=== PATIENT | male | born 1995 | race Caucasian/White ===

== ENCOUNTER 2021-01-19 12:09 | Emergency (ER) | payer BC ==
[2021-01-19 13:25] LABS: Urine Blood 3+ (Negative); Urine Glucose Negative (Negative); Urine Protein 1+ (Negative); Urine Specific Gravity >=1.030 (1.005-1.030); Urine pH 5.5 (5.0-7.0)
[2021-01-19 14:57] LABS: Absolute Lymphocytes (CBC) 2.2 K/uL (0.7-4.9); Basophils % 0.6 % (0-1.3); Hematocrit 41.3 % (39.6-49.0); Lymphocytes % 30.3 % (15.3-44.8); MPV 7.1 fL (7.6-11.3); RBC Red Blood Cell Count 4.68 M/uL (4.33-5.43)
[2021-01-19 14:58] LABS: Potassium 4.4 mmol/L (3.5-5.1)
--- NOTE | 2021-01-19 15:04 | RAD REPORT ---
EXAM DESCRIPTION: CT - Stone Protocol - 01/19/2021 2:46 pm CLINICAL HISTORY: Hematuria COMPARISON: None. TECHNIQUE: Axial 5 mm thick images were obtained without oral or IV contrast. The [id number] span s the entirety of the system partially obscuring uppermost abdomen and lung bases. All CT scans are performed using dose optimization technique as appropriate and may include automated exposure control or mA/KV adjustment according to patient size. FINDINGS: No hydronephrosis is present and no obstructing ureteral calculi. Absent right kidney. No left ureteral calculi. The bladder is decompressed not well evaluated Trace pelvic free fluid. Imaged portions of the liver and spleen show no suspicious findings on non-contrast imaging. No gallb ladder, biliary tree or pancreatic abnormality identified. No significant adrenal finding. No suspicious bowel findings. No hernia, mass or bulky lymphadenopathy noted. No significant bony abnormality. IMPRESSION: Right nephrectomy. No left renal calculi or stones. The bladder is not well assessed due to underdistention. Nonemergent cystoscopy could better evaluate.
[2021-01-19 15:06] LABS: Urine Bacteria <20 /HPF (NONE SEEN); Urine RBC 20-50 /HPF (NONE SEEN)
--- NOTE | 2021-01-19 16:06 | ER ---
Nurse's Notes [facility] Name: Qamar Ngo Age: 25 yrs Sex: Male : 1995 Arrival Date: 01/19/2021 Time: 12:12 Bed 8 Private MD: Diagnosis: Hematuria, unspecified Presentation: 01/19 12:53 Chief complaint:. Chief complaint: Patient states: Sunday familia lower back pain Pt kg stated, "kidney pain" went to PCP Sunday and had lab work no results yet. Cough, congestion starting Sunday, Blood in urine this am 01/19. Coronavirus screen: Client denies travel out of the [place] in the last 14 days. At this time, unable to obtain information related to travel outside the [place] Client presents with at least one sign or symptom that may indicate coronavirus-19. Standard/surgical mask placed on the client. Provider contacted for isolation considerations. Ebola Screen: Patient negative for fever greater than or equal to 101.5 degrees Fahrenheit, and additional compatible Ebola Virus Disease symptoms Patient denies exposure to infectious person. Patient denies travel to an Ebola-affected area in the 21 days before illness onset. Initial Sepsis Screen: Does the patient meet any 2 criteria? No. Patient's initial sepsis screen is negative. Does the patient have a suspected source of infection? No. Patient's initial sepsis screen is negative. Risk Assessment: Do you want to hurt yourself or someone else? Patient reports no desire to harm self or others. Onset of symptoms was January 16, 2021. 12:53 Method Of Arrival: Ambulatory kg 12:53 Acuity: MONCHO 3 kg Historical: - Allergies: 12:58 No Known Allergies; kg - Home Meds: 12:58 lisinopril 20 mg Oral tab [Active]; kg - PMHx: 12:58 UTI's; Hypertensive disorder; kg - PSHx: 12:58 Right nephrecetomy; kg - Immunization history:: Adult Immunizations not up to date, Client reports having NOT received the Covid vaccine. - Social history:: Smoking status: Patient denies any tobacco usage or history of. - Family history:: not pertinent. - Hospitalizations: : No recent hospitalization is reported. Screenin:00 Abuse screen: Denies threats or abuse. Denies injuries from another. Nutritional kg screening: No deficits noted. Tuberculosis screening: No symptoms or risk factors identified. Fall Risk None identified. Assessment: 14:40 General: Appears in no apparent distress. Behavior is calm, cooperative. Pain: Denies hb pain. Neuro: Level of Consciousness is awake, alert, obeys commands, Oriented to person, place, time, situation. Cardiovascular: Patient's skin is warm and dry. Respiratory: Respiratory effort is even, unlabored, Respiratory pattern is regular, symmetrical. GI: No deficits noted. : Reports blood in urine. EENT: No signs and/or symptoms were reported regarding the EENT system. Derm: Skin is pink, warm \\T\\ dry. Musculoskeletal: No signs and/or symptoms reported regarding the musculoskeletal system. 15:45 Reassessment: Patient appears in no apparent distress at this time. Patient and/or hb family updated on plan of care and expected duration. Pain level reassessed. Patient is alert, oriented x 3, equal unlabored respirations, skin warm/dry/pink. 16:45 Reassessment: Patient appears in no apparent distress at this time. Patient and/or hb family updated on plan of care and expected duration. Pain level reassessed. Patient is alert, oriented x 3, equal unlabored respirations, skin warm/dry/pink. Vital Signs: 12:53 Pulse 64; Resp 20; Temp 97.7(TE); Pulse Ox 98% on R/A; Weight 151.05 kg (R); Height 6 kg ft. 2 in. (187.96 cm); Pain 1/10; 16:00 BP 132 / 82; Pulse 68; Resp 16; Pulse Ox 99% on R/A; hb 12:53 Body Mass Index 42.75 (151.05 kg, 187.96 cm) kg ED Course: 12:12 Patient arrived in ED. as 12:58 Triage completed. kg 12:58 Arm band placed on right wrist. kg 13:00 Patient has correct armband on for positive identification. kg 14:13 Chun Oconnor MD is Attending Physician. rn 14:26 Jacqueline Elizondo, NNAMDI is Primary Nurse. hb 14:32 Inserted saline lock: 20 gauge 24 gauge antecubital area, using aseptic technique. hb Blood collected. 14:46 CT Stone Protocol In Process Unspecified. EDMS 17:02 No provider procedures requiring assistance completed. IV discontinued, intact, hb bleeding controlled, No redness/swelling at site. Administered Medications: No medications were administered Outcome: 16:05 Discharge ordered by . rn 17:02 Discharged to home ambulatory, with family. 17:02 Condition: stable 17:02 Discharge instructions given to patient, family, Instructed on discharge instructions, follow up and referral plans. medication usage, Demonstrated understanding of instructions, follow-up care, medications. 17:03 Patient left the ED. hb Signatures: Dispatcher [employer] EDMS Luanne Rosario Roman, MD MD rn Baxter, Heather, RN RN Joanna Mohr RN RN kg
--- NOTE | 2021-01-19 16:06 | EDPHYS ---
Physician Documentation [facility] Name: Qamar Ngo Age: 25 yrs Sex: Male : 1995 Arrival Date: 01/19/2021 Time: 12:12 Bed 8 Private MD: ED Physician Chun Oconnor HPI: 01/19 14:28 This 25 yrs old Male presents to ER via Ambulatory with complaints of Urinary rn Problem - blood, Flank Pain, Abdominal Pain. 14:30 The patient presents with urinary symptoms, hematuria. Onset: The symptoms/episode rn began/occurred this morning. Modifying factors: The symptoms are alleviated by nothing, the symptoms are aggravated by nothing. Associated signs and symptoms: Pertinent positives: abdominal pain, Pertinent negatives: fever, nausea, vomiting. Severity of symptoms: At their worst the symptoms were moderate, in the emergency department the symptoms have improved. The patient has not experienced similar symptoms in the past. The patient has been recently seen by a physician:. Patient reports woke up this morning, showered, urinated, noticed jorge blood, had some flank pain and abdominal pain 2 days ago but no longer having pain. No fever. Has history of kidney stones. No recent trauma. Does not take any blood thinners.. Historical: - Allergies: 12:58 No Known Allergies; kg - Home Meds: 12:58 lisinopril 20 mg Oral tab [Active]; kg - PMHx: 12:58 UTI's; Hypertensive disorder; kg - PSHx: 12:58 Right nephrecetomy; kg - Immunization history:: Adult Immunizations not up to date, Client reports having NOT received the Covid vaccine. - Social history:: Smoking status: Patient denies any tobacco usage or history of. - Family history:: not pertinent. - Hospitalizations: : No recent hospitalization is reported. ROS: 14:30 Constitutional: Negative for fever, chills, and weight loss, Eyes: Negative for injury, rn pain, redness, and discharge, Neck: Negative for injury, pain, and swelling, Cardiovascular: Negative for chest pain, palpitations, and edema, Respiratory: Negative for shortness of breath, cough, wheezing, and pleuritic chest pain, Abdomen/GI: Negative for abdominal pain, nausea, vomiting, diarrhea, and constipation, Back: Negative for injury and pain, : Positive for hematuria MS/Extremity: Negative for injury and deformity, Skin: Negative for injury, rash, and discoloration, Neuro: Negative for headache, weakness, numbness, tingling, and seizure. Exam: 14:30 Constitutional: This is a well developed, well nourished patient who is awake, alert, rn and in no acute distress. Ambulatory to room without assistance or difficulty. Head/Face: Normocephalic, atraumatic. Eyes: Pupils equal round and reactive to light, extra-ocular motions intact. Lids and lashes normal. Conjunctiva and sclera are non-icteric and not injected. Cornea within normal limits. Periorbital areas with no swelling, redness, or edema. Cardiovascular: Regular rate and rhythm. No pulse deficits. Respiratory: No increased work of breathing, no retractions or nasal flaring. Abdomen/GI: Soft, non-tender Back: No spinal tenderness. No costovertebral tenderness. Full range of motion. Skin: Warm, dry MS/ Extremity: Pulses equal, no cyanosis. Neuro: Awake and alert, GCS 15 Vital Signs: 12:53 Pulse 64; Resp 20; Temp 97.7(TE); Pulse Ox 98% on R/A; Weight 151.05 kg (R); Height 6 kg ft. 2 in. (187.96 cm); Pain 1/10; 16:00 BP 132 / 82; Pulse 68; Resp 16; Pulse Ox 99% on R/A; hb 12:53 Body Mass Index 42.75 (151.05 kg, 187.96 cm) kg MDM: 14:13 Patient medically screened. rn 16:03 Differential diagnosis: UTI, urethritis, Kidney stone, passed kidney stone, bladder rn polyp, bladder mass. Data reviewed: vital signs, nurses notes, lab test result(s), radiologic studies, CT scan, and as a result, I will discharge patient. Counseling: I had a detailed discussion with the patient and/or guardian regarding: the historical points, exam findings, and any diagnostic results supporting the discharge/admit diagnosis, lab results, radiology results, the need for outpatient follow up, to return to the emergency department if symptoms worsen or persist or if there are any questions or concerns that arise at home. Response to treatment: the patient's symptoms have mildly improved after treatment, and as a result, I will discharge patient. Special discussion: I discussed with the patient/guardian in detail that at this point there is no indication for admission to the hospital. It is understood, however, that if the symptoms persist or worsen the patient needs to return immediately for re-evaluation. ED course: Patient improving, no gross hematuria, CT no acute findings, normal kidney function, UA without signs of UTI. Will DC home with return precautions and if gross hematuria returns needs to follow-up with urology for cystoscopy.. 01/19 13:02 Order name: Flu kg 01/19 13:02 Order name: COVID-19 : Document "Date of Symptom Onset" if Symptomatic. kg 01/19 13:02 Order name: Influenza Screen (A ; Complete Time: 15:52 EDMS 01/19 13:25 Order name: Urine Dipstick-Ancillary; Complete Time: 14:14 EDMS 01/19 14:21 Order name: CBC with Diff; Complete Time: 15:06 rn 01/19 13:15 Order name: Urine Dipstick-Ancillary (obtain specimen); Complete Time: 14:29 kb 01/19 14:21 Order name: IV Start; Complete Time: 14:40 rn 01/19 14:21 Order name: Basic Metabolic Panel; Complete Time: 15:06 rn 01/19 14:21 Order name: CT Stone Protocol; Complete Time: 15:06 rn 01/19 14:21 Order name: Urine Microscopic Only; Complete Time: 15:07 rn 01/19 14:21 Order name: Urine Culture 01/19 15:21 Order name: SARS-COV-2 RT PCR; Complete Time: 15:52 EDMS Administered Medications: No medications were administered Disposition Summary: 01/19/21 16:05 Discharge Ordered Location: Home rn Problem: new rn Symptoms: have improved rn Condition: Stable rn Diagnosis - Hematuria, unspecified rn Followup: rn - With: Private Physician - When: As needed - Reason: Recheck today's complaints, Re-evaluation by your physician Discharge Instructions: - Discharge Summary Sheet rn - Hematuria, Adult rn Forms: - Medication Reconciliation Form rn - Thank You Letter rn - Antibiotic [employer] attorney - Prescription Opioid Use rn - Work release form kg Signatures: Dispatcher [employer] EDMS Aisha Hurt FNP-C FNP-Ckb Oconnor, Chun, MD MD rn Onur, Joanna, RN RN kg Corrections: (The following items were deleted from the chart) 14: 13:02 CORONAVIRUS ordered. EDMS EDMS
== END 2021-01-19 17:03 | disposition home or self-care (01) ==
LOC: ER 12:09
DX: R31.9 Hematuria, unspecified (principal); I10 Essential (primary) hypertension; Z20.822 Contact with and (suspected) exposure to COVID-19
CPT/HCPCS: 87088; 85025; 87086; 80048; 36415; 87804 ×2; 76377; 74176; 99283; U0003; 81003; 81015